=== PATIENT | male | born 1985 | race Two or more races ===

== ENCOUNTER 2017-11-29 08:33 | Emergency (ER) | payer SELFPAY ==
--- NOTE | 2017-11-29 08:42 | EDM.PDOC ---
ED HPI GENERAL MEDICAL PROBLEM - General Chief Complaint: Chest Pain Stated Complaint: CHEST PAIN Time Seen by Provider: 11/29/17 08:39 - History of Present Illness INITIAL COMMENTS - FREE TEXT/NARRATIVE: 32-year-old male presents emergency room with chief complaint chest pain. This pain was going on most of yesterday radiated into his left arm. The pain did resolve after work. He noticed a little bit of discomfort this morning but at this time is pain-free. Patient has a significant history of having a heart attack in the past and possibly even a stroke patient's history is a little unclear his heart attack was in either [place] or [place]. He had a stress test done he thinks in [place] is not sure where but partially through the procedure he walked out on it because he did not want to deal with what they were telling him. Yesterday he took a bunch of baby aspirin he bonded small bottle and basically went to the whole small bottle. The patient has not used nitroglycerin because he does not have regular doctor and does not have current nitroglycerin prescription. Patient denies any drugs or alcohol. He is a heavy smoker smokes 3 packs a day. Patient has a very strong family history of premature coronary artery disease is father's her ready had bypass surgery he's had some uncles prematurely of heart attacks. Chest Pain Score (Numeric/FACES): 5 - Related Data Allergies Allergy/AdvReac Type Severity Reaction Status Date / Time No Known Allergies Allergy Verified 11/29/17 08:44 Home Meds: Home Meds Nitroglycerin [Nitrostat] 0.4 mg SL ASDIRECTED #10 tab.sl 11/29/17 [Rx] ED ROS GENERAL - Review of Systems Review Of Systems: See Below Constitutional: Reports: No Symptoms HEENT: Reports: No Symptoms Respiratory: Reports: No Symptoms Cardiovascular: Reports: Chest Pain. Denies: Dyspnea on Exertion, Edema, Syncope Endocrine: Reports: No Symptoms GI/Abdominal: Reports: No Symptoms : Reports: No Symptoms Neurological: Reports: No Symptoms Psychiatric: Reports: No Symptoms Hematologic/Lymphatic: Reports: No Symptoms Immunologic: Reports: No Symptoms ED EXAM, GENERAL - Physical Exam Exam: See Below Exam Limited By: No Limitations General Appearance: Alert, No Apparent Distress Head: Atraumatic, Normocephalic Neck: Normal Inspection, Supple, Non-Tender, Full Range of Motion. No: Lymphadenopathy (L), Lymphadenopathy (R) Respiratory/Chest: No Respiratory Distress, Lungs Clear, Normal Breath Sounds Cardiovascular: Regular Rate, Rhythm, No Edema, No Murmur GI/Abdominal: Normal Bowel Sounds, Soft, Non-Tender, No Organomegaly, No Distention, No Abnormal Bruit, No Mass Back Exam: Normal Inspection. No: CVA Tenderness (L), CVA Tenderness (R) Extremities: Normal Inspection, No Pedal Edema EKG INTERPRETATION EKG Date: 11/29/17 Rhythm: NSR [place]: Normal P-Wave: Present QRS: Normal ST-T: Other (ST changes consistent with early repolarization) QT: Normal Comparison: NA - No Prior EKG EKG Interpretation Comments: EKG no acute ischemia changes consistent with early repolarization. Borderline EKG Course - Vital Signs Last Recorded V/S: Last Vital Signs Temp 36.4 C 11/29/17 08:39 Pulse 81 11/29/17 08:39 Resp 16 11/29/17 08:39 BP 127/86 11/29/17 08:39 Pulse Ox 99 11/29/17 08:39 - Orders/Labs/Meds Orders: Active Orders 24 hr Category Date Time Status EKG 12 Lead [EKG Documentation Completion] [RC] STAT Care 11/29/17 09:05 Inactive EKG Documentation Completion [RC] STAT Care 11/29/17 09:05 Active Chest 1V Frontal [CR] Stat Exams 11/29/17 10:12 Taken Labs: Laboratory Tests 11/29/17 11/29/17 11/29/17 Range/Units 08:52 08:52 10:20 WBC 5.94 (4.23-9.07) K/mm3 RBC 4.93 (4.63-6.08) M/mm3 Hgb 15.2 (13.7-17.5) gm/L Hct 44.6 (40.1-51.0) % MCV 90.5 (79.0-92.2) fl MCH 30.8 (25.7-32.2) pg MCHC 34.1 (32.2-35.5) g/dl RDW Std Deviation 42.8 (35.1-43.9) fL Plt Count 317 (163-337) K/mm3 MPV 8.5 L (9.4-12.3) fl Neutrophils % (Manual) 63 H (40-60) % Band Neutrophils % 0 (0-10) % Lymphocytes % (Manual) 26 (20-40) % Atypical Lymphs % 0 % Monocytes % (Manual) 7 (2-10) % Eosinophils % (Manual) 3 (0.8-7.0) % Basophils % (Manual) 1 (0.2-1.2) Platelet Estimate Adequate RBC Morph Comment Normal Sodium 139 (136-145) mEq/L Potassium 3.9 (3.5-5.1) mEq/L Chloride 104 (98-107) mEq/L Carbon Dioxide 27 (21-32) mEq/L Anion Gap 11.9 (5-15) BUN 16 (7-18) mg/dL Creatinine 1.0 (0.7-1.3) mg/dL Est Cr Clr Drug Dosing 105.07 mL/min Estimated GFR (MDRD) > 60 (>60) mL/min BUN/Creatinine Ratio 16.0 (14-18) Glucose 124 H (74-106) mg/dL Calcium 8.7 (8.5-10.1) mg/dL Total Bilirubin 0.5 (0.2-1.0) mg/dL AST 17 (15-37) U/L ALT 29 (16-63) U/L Alkaline Phosphatase 107 (46-116) U/L Troponin I < 0.017 (0.00-0.056) ng/mL Total Protein 7.2 (6.4-8.2) g/dl Albumin 3.6 (3.4-5.0) g/dl Globulin 3.6 gm/dL Albumin/Globulin Ratio 1.0 (1-2) Urine Opiates Screen Negative (NEGATIVE) Ur Buprenorphine Scrn Negative (NEGATIVE) Ur Oxycodone Screen Negative (NEGATIVE) Urine Methadone Screen Negative (NEGATIVE) Ur Propoxyphene Screen Negative (NEGATIVE) Ur Barbiturates Screen Negative (NEGATIVE) Ur Tricyclics Screen Negative (NEGATIVE) Ur Phencyclidine Scrn Negative (NEGATIVE) Ur Amphetamine Screen Negative (NEGATIVE) U Methamphetamines Scrn Negative (NEGATIVE) U Benzodiazepines Scrn Negative (NEGATIVE) U Cocaine Metab Screen Negative (NEGATIVE) U Marijuana (THC) Screen Negative (NEGATIVE) - Re-Assessments/Exams Free Text/Narrative Re-Assessment/Exam: 02/03/18 11:10 Patient's lab is done revealing troponin negative he has not had any chest pain here in the emergency room. With the patient's concerning history and uncertain history he is offered observation for serial enzymes and repeat EKGs this is declined but he does agree to follow-up in the clinic here and does agree to getting a outpatient stress Cardiolite done. He'll be discharged with nitroglycerin in case he needs it he has used this in the past. Patient is a strong family history his own history is somewhat questionable but indeed concerning. Departure - Departure Time of Disposition: 11:14 Disposition: Home, Self-Care 01 Clinical Impression: Chest pain Prescriptions: Nitroglycerin [Nitrostat] 0.4 mg SL ASDIRECTED #10 tab.sl Referrals: PCP,Not In Area [Primary Care Provider] - Forms: ED Department Discharge Additional Instructions: Return to the emergency room with any questions problems worsening symptoms. Follow-up in the clinic a day or 2 after your stress test is done. Schedule a appointment as soon as you know what time your stress test will be done. [phone] Use the sublingual nitroglycerin as needed. Take one baby aspirin daily no more on a regular basis. If you have severe chest pain take [address] your [address] into the emergency room - My Orders Last 24 Hours: My Active Orders 11/29/17 09:05 EKG 12 Lead [EKG Documentation Completion] [RC] STAT EKG Documentation Completion [RC] STAT 11/29/17 10:12 Chest 1V Frontal [CR] Stat - Assessment/Plan Last 24 Hours: My Active Orders 11/29/17 09:05 EKG 12 Lead [EKG Documentation Completion] [RC] STAT EKG Documentation Completion [RC] STAT 11/29/17 10:12 Chest 1V Frontal [CR] Stat
--- NOTE | 2017-11-30 08:58 | CR ---
Chest: Frontal view of the chest was obtained. Comparison: No prior study. Heart size and mediastinum are normal. Lungs are clear. Bony structures are grossly intact. Impression: 1. Nothing acute is identified on frontal chest x-ray. Diagnostic code #1
== END 2017-11-29 11:40 | disposition home or self-care (01) ==
LOC: JD.ED 08:33
DX: R07.9 Chest pain, unspecified (principal); F17.210 Nicotine dependence, cigarettes, uncomplicated
CPT/HCPCS: 36415; 71045; 71045-26; 80053; 80306; 84484; 85025; 93005; 99285-25